=== PATIENT | male | born 1945 ===

== ENCOUNTER 2017-02-18 12:30 | Emergency (ER) | payer MEDICARE ==
[2017-02-18 12:30] VITALS: BMI 27.4
[2017-02-18] MEDS ORDERED: Iohexol 240 (50 ml) PO STA (13:17)
[2017-02-18] MEDS ORDERED: Sodium Chloride 0.9% 500 ML IV STA (13:17)
[2017-02-18] MEDS ORDERED: Iohexol 240 (50 ml) ONE ×2 (13:40)
[2017-02-18] MEDS ORDERED: Sodium Chloride 0.9% 0 ML ONE (13:40)
[2017-02-18] MEDS ORDERED: Sodium Chloride 0.9% 500 ML IV ONE (13:51)
[2017-02-18 13:52] LABS: BASO % 0.4 % (0.0-2.0); EOS # 0.1 K/uL (0.0-0.7); EOS % 1.8 % (0.0-4.0); HEMATOCRIT 38.4 % (35.0-51.0); LYMPH # 2.7 K/uL (1.0-4.3); LYMPH % 33.5 % (20.0-40.0); MEAN CELL VOLUME 90.1 fL (80.0-94.0); MEAN CORPUSCULAR HEMOGLOBIN 30.3 pg (27.0-31.0); MEAN CORPUSCULAR HGB CONC 33.6 g/dL (33.0-37.0); MEAN PLATELET VOLUME 8.4 fL (7.2-11.7); MONO # 0.6 K/uL (0.0-0.8); MONO % 7.2 % (0.0-10.0); RED CELL DISTRIBUTION WIDTH 14.2 % (11.5-14.5); WHITE BLOOD COUNT 8.1 K/uL (4.8-10.8)
--- NOTE | 2017-02-18 13:53 | C.PDOC ---
History Of Present Illness 71 y/o male with h/o diverticulosis presents to the ED with complains of LLQ abdominal pain x3 days with associated nausea and constipation. Patient was seen by his GI who sent him to ED to r/o diverticulitis. Pt denies fever, vomiting, chills, chest pain or any other complaints. Time Seen by Provider: 02/18/17 12:43 Chief Complaint (Nursing): Abdominal Pain History Per: Patient History/Exam Limitations: no limitations Onset/Duration Of Symptoms: Days Current Symptoms Are (Timing): Still Present Severity: Moderate Location Of Pain/Discomfort: LLQ Radiation Of Pain To:: None Quality Of Discomfort: "Pain" Associated Symptoms: Nausea, Constipation. denies: Fever, Vomiting, Diarrhea, Chest Pain Exacerbating Factors: None Alleviating Factors: None Recent travel outside of the [place]: No Past Medical History Reviewed: Historical Data, Nursing Documentation, Vital Signs Vital Signs: Last Vital Signs Temp 97.7 F 02/18/17 18:25 Pulse 60 02/18/17 18:25 Resp 16 02/18/17 18:25 BP 129/71 02/18/17 18:25 Pulse Ox 99 02/18/17 18:34 - Medical History PMH: Benign Prostatic Hyperplasia, Colonic Polyps (REMOVED), Diverticulitis ( diverticulosis), Gastritis, Kidney Stones, Chronic Kidney Disease Surgical History: Endoscopy - [facility] Procedures ENDOSC POLYPECTOMY OF LG INTEST (01/07/14) ESOPHAGOGASTRODUODENOSCOPY [EGD] W/CLOSED BIOPSY (01/07/14) RESECTION OF APPENDIX, PERCUTANEOUS ENDOSCOPIC APPROACH (05/29/16) RETROGRADE PYELOGRAM (12/21/14) Family History: States: Unknown Family Hx - Social History Hx Tobacco Use: Yes ("once in a while") Hx Alcohol Use: No Hx Substance Use: No - Immunization History Hx Tetanus Toxoid Vaccination: No Hx Influenza Vaccination: No Hx Pneumococcal Vaccination: No Review Of Systems Except As Marked, All Systems Reviewed And Found Negative. Constitutional: Negative for: Fever Cardiovascular: Negative for: Chest Pain Gastrointestinal: Positive for: Nausea, Abdominal Pain, Constipation. Negative for: Vomiting, Diarrhea Physical Exam - Physical Exam Appears: Non-toxic, No Acute Distress Skin: Warm, Dry, No Rash Head: Atraumatic, Normacephalic Neck: Normal ROM, Supple Chest: Symmetrical Cardiovascular: Rhythm Regular, No Murmur Respiratory: Normal Breath Sounds, No Rales, No Rhonchi, No Wheezing Gastrointestinal/Abdominal: Soft, Tenderness (LLQ), No Guarding, No Rebound Extremity: Bilateral: Atraumatic Neurological/Psych: Oriented x3, Normal Speech ED Course And Treatment - Laboratory Results Result Diagrams: 02/18/17 13:47 02/18/17 13:47 O2 Sat by Pulse Oximetry: 99 (room air) Pulse Ox Interpretation: Normal - CT Scan/US CT abd/pelvis Other Rad Studies (CT/US): Read By Radiologist, Radiology Report Reviewed CT/US Interpretation: Accession No. : [id number]. Patient Name / ID : JOHN MAYS / [id number]. Exam Date : 02/18/2017 17:28:05 ( Approved ). Study Comment : Sex / Age : M / 71Y. Creator : Page Kang MD. Dictator : Page Kang MD. Hosiery Mender : Mountain Guide : Page Kang MD. Approver2 : Report Date : 02/18/2017 18:01:12. My Comment : . PROCEDURE: CT Abdomen and Pelvis with oral and IV contrast. HISTORY: LLQ abd pain. COMPARISON: CT of the abdomen and pelvis without and with IV contrast performed 12/14/16. TECHNIQUE: Contiguous axial images of the abdomen and pelvis. Oral and IV contrast was administered. Coronal and Sagittal reformats generated and reviewed. Contrast dose: 100 mL Omnipaque 350. Radiation dose: Total exam DLP = 707.63 mGy-cm. This CT exam was performed using one or more of the following dose reduction techniques: Automated exposure control, adjustment of the mA and/or kV according to patient size, and/ or use of iterative reconstruction technique. FINDINGS: LOWER THORAX: No focal consolidation, pleural effusion, or pneumothorax identified. LIVER: Hypoattenuation of the liver compatible with hepatic steatosis. Scattered small low attenuation hepatic lesions, likely cysts. GALLBLADDER AND BILE DUCTS: Unremarkable. PANCREAS: Unremarkable. SPLEEN: 6 mm probable splenule. Otherwise unremarkable. ADRENALS: Unremarkable. KIDNEYS AND URETERS: The kidneys enhance symmetrically. No hydronephrosis or obstructing renal calculus. Punctate nonobstructing right renal calculi. BLADDER: Thick-walled under distended urinary bladder. REPRODUCTIVE: Heterogeneous enlarged prostate gland measures approximately 4.7 x 5.6 cm. APPENDIX: Status post appendectomy. BOWEL: The stomach is nondistended. The bowel loops appear within normal limits of caliber without evidence of intestinal obstruction. Extensive diverticulosis predominantly involving the left and rectosigmoid colon. Circumferential thickening of the rectosigmoid colon can be seen in setting of chronic diverticulosis. Clinical correlation is recommended to exclude colitis (I.e. infectious, inflammatory, ischemic). PERITONEUM: No significant free fluid. No definite free air. LYMPH NODES: No bulky lymphadenopathy identified. VASCULATURE: No aortic aneurysm. BONES: Osseous demineralization. Degenerative changes. OTHER FINDINGS: None. IMPRESSION: Extensive diverticulosis predominantly involving the left and rectosigmoid colon. Circumferential thickening of the rectosigmoid colon can be seen in setting of chronic diverticulosis. Clinical correlation is recommended to exclude colitis (I.e. infectious, inflammatory, ischemic). Enlarged heterogeneous prostate gland. Recommend correlation with PSA. Hypodense hepatic lesions, likely cysts. Urinary bladder wall thickening likely exaggerated by under distension. Recommend correlation with urinalysis. Multiple nonobstructing right renal calculi. Remainder of findings as above. Progress Note: Plan: CT abd, labs, zofran, UA, IV fluids. CT was negative for Diverticulosis. Patient was d/c home with PMD and GI follow up. Disposition - Disposition Referrals: Alayna Pugh [Staff Provider] - Cindi Hendrickson MD [Staff Provider] - Disposition: HOME/ ROUTINE Disposition Time: 18:30 Condition: STABLE Additional Instructions: Follow up with your PMD and Asphalt Dauber within 1-2 days. return to Ed if feel worse. Prescriptions: Docusate [Colace] 100 mg PO BID #20 cap Instructions: Diverticulitis (ED), Constipation (ED) Print Language: BERMUDIAN - Clinical Impression Clinical Impression: Constipation, Diverticulosis - PA / NETTING INSPECTOR / Resident Statement /DO has reviewed & agrees with the documentation as recorded. - Scribe Statement The provider has reviewed the documentation as recorded by the Scribtalya Xie All medical record entries made by the Gal were at my direction and personally dictated by me. I have reviewed the chart and agree that the record accurately reflects my personal performance of the history, physical exam, medical decision making, and the department course for this patient. I have also personally directed, reviewed, and agree with the discharge instructions and disposition.
[2017-02-18 14:01] LABS: RBC URINE 8 /hpf (0-3); URINE BILIRUBIN NEGATIVE (NEGATIVE); URINE BLOOD 1+ (NEGATIVE); URINE COLOR Yellow (YELLOW); URINE GLUCOSE (UA) NORMAL (Normal); URINE KETONE NEGATIVE (NEGATIVE); URINE LEUKOCYTE ESTERASE NEG Leu/uL (Negative); URINE PROTEIN NEGATIVE (NEGATIVE); URINE UROBILINOGEN NORMAL mg/dL (0.2-1.0); WBC URINE 2 /hpf (0-5)
[2017-02-18 14:08] LABS: CHLORIDE 106 mmol/L (98-107); SODIUM 142 mmol/L (132-148)
[2017-02-18 14:09] LABS: POTASSIUM 4.2 mmol/L (3.6-5.2)
[2017-02-18 14:11] LABS: ALB/GLOB RATIO 1.5 (1.0-2.1); BILIRUBIN,TOTAL 0.4 mg/dL (0.2-1.3); CARBON DIOXIDE 26 mmol/L (22-30); GFR AFRICAN-AMERICAN > 60; TOTAL PROTEIN 6.5 g/dL (6.3-8.3)
[2017-02-18 14:12] LABS: ALKALINE PHOSPHATASE 82 U/L (38-126); ALT/SGPT 22 U/L (21-72); AST/SGOT 28 U/L (17-59); BLOOD UREA NITROGEN 21 mg/dL (9-20); CALCIUM 8.7 mg/dl (8.6-10.4); GLUCOSE,RANDOM 97 mg/dL (75-110)
[2017-02-18] MEDS ORDERED: Iohexol 300 100 ML IJ ONE (17:12)
--- NOTE | 2017-02-18 18:03 | CT ---
PROCEDURE: CT Abdomen and Pelvis with oral and IV contrast. HISTORY: LLQ abd pain COMPARISON: CT of the abdomen and pelvis without and with IV contrast performed 12/14/16 TECHNIQUE: Contiguous axial images of the abdomen and pelvis. Oral and IV contrast was administered. Coronal and Sagittal reformats generated and reviewed. Contrast dose: 100 mL Omnipaque 350 Radiation dose: Total exam DLP = 707.63 mGy-cm. This CT exam was performed using one or more of the following dose reduction techniques: Automated exposure control, adjustment of the mA and/or kV according to patient size, and/or use of iterative reconstruction technique. FINDINGS: LOWER THORAX: No focal consolidation, pleural effusion, or pneumothorax identified. LIVER: Hypoattenuation of the liver compatible with hepatic steatosis. Scattered small low attenuation hepatic lesions, likely cysts. GALLBLADDER AND BILE DUCTS: Unremarkable. PANCREAS: Unremarkable. SPLEEN: 6 mm probable splenule. Otherwise unremarkable. ADRENALS: Unremarkable. KIDNEYS AND URETERS: The kidneys enhance symmetrically. No hydronephrosis or obstructing renal calculus. Punctate nonobstructing right renal calculi. BLADDER: Thick-walled under distended urinary bladder. REPRODUCTIVE: Heterogeneous enlarged prostate gland measures approximately 4.7 x 5.6 cm. APPENDIX: Status post appendectomy. BOWEL: The stomach is nondistended. The bowel loops appear within normal limits of caliber without evidence of intestinal obstruction. Extensive diverticulosis predominantly involving the left and rectosigmoid colon. Circumferential thickening of the rectosigmoid colon can be seen in setting of chronic diverticulosis. Clinical correlation is recommended to exclude colitis (I.e. infectious, inflammatory, ischemic). PERITONEUM: No significant free fluid. No definite free air. LYMPH NODES: No bulky lymphadenopathy identified. VASCULATURE: No aortic aneurysm. BONES: Osseous demineralization. Degenerative changes. OTHER FINDINGS: None. IMPRESSION: Extensive diverticulosis predominantly involving the left and rectosigmoid colon. Circumferential thickening of the rectosigmoid colon can be seen in setting of chronic diverticulosis. Clinical correlation is recommended to exclude colitis (I.e. infectious, inflammatory, ischemic). Enlarged heterogeneous prostate gland. Recommend correlation with PSA. Hypodense hepatic lesions, likely cysts. Urinary bladder wall thickening likely exaggerated by under distension. Recommend correlation with urinalysis. Multiple nonobstructing right renal calculi. Remainder of findings as above.
[2017-02-18 18:26] VITALS: BP 129/71; PULSE 60; RESP 16; TEMP 97.7
[2017-02-18 18:33] VITALS: O2SAT 99
== END 2017-02-18 18:46 | disposition home or self-care (01) ==
LOC: C.ER 12:30
DX: K57.30 Diverticulosis of large intestine without perforation or abscess without bleeding (principal); K59.00 Constipation, unspecified
CPT/HCPCS: 74177; 80053; 81001; 83605; 83690; 85025; 85610; 85730; 96361; 96374; 99285; J2405; J7040; Q9966; Q9967

== ENCOUNTER 2017-03-29 05:18 | Emergency (ER) | payer MEDICARE ==
[2017-03-29 05:19] VITALS: BMI 27.4
--- NOTE | 2017-03-29 05:32 | C.PDOC ---
History Of Present Illness Patient is a 71 year old male who presents to the ER with a complaint of hematuria and abdominal pain, associated with back pain, that began this morning. Patient has a Hx of kidney stones 2 years ago. Denies fever, chills and vomiting. Time Seen by Provider: 03/29/17 05:32 Chief Complaint (Nursing): Male Genitourinary History Per: Patient History/Exam Limitations: no limitations Onset/Duration Of Symptoms: Hrs Current Symptoms Are (Timing): Still Present Quality Of Discomfort: Unable To Describe Associated Symptoms: Back Pain, Urinary Symptoms (Hematuria), Other (Abdominal pain). denies: Fever, Chills, Vomiting Alleviating Factors: None Recent travel outside of the [place]: No Past Medical History Reviewed: Historical Data, Nursing Documentation, Vital Signs Vital Signs: Last Vital Signs Temp 97.8 F 03/29/17 06:45 Pulse 68 03/29/17 06:45 Resp 18 03/29/17 06:45 BP 143/79 03/29/17 06:45 Pulse Ox 98 03/29/17 06:45 - Medical History PMH: Benign Prostatic Hyperplasia, Colonic Polyps (REMOVED), Diverticulitis ( diverticulosis), Gastritis, Kidney Stones, Chronic Kidney Disease Surgical History: Endoscopy - [facility] Procedures ENDOSC POLYPECTOMY OF LG INTEST (01/07/14) ESOPHAGOGASTRODUODENOSCOPY [EGD] W/CLOSED BIOPSY (01/07/14) RESECTION OF APPENDIX, PERCUTANEOUS ENDOSCOPIC APPROACH (05/29/16) RETROGRADE PYELOGRAM (12/21/14) Family History: States: Unknown Family Hx - Social History Hx Tobacco Use: Yes ("once in a while") Hx Alcohol Use: No Hx Substance Use: Yes - Immunization History Hx Tetanus Toxoid Vaccination: No Hx Influenza Vaccination: No Hx Pneumococcal Vaccination: No Review Of Systems Constitutional: Negative for: Fever, Chills Gastrointestinal: Positive for: Abdominal Pain. Negative for: Vomiting Genitourinary: Positive for: Hematuria Musculoskeletal: Positive for: Back Pain Physical Exam - Physical Exam Appears: Non-toxic, No Acute Distress Skin: Normal Color, Warm, Dry Head: Atraumatic, Normacephalic Eye(s): bilateral: Normal Inspection, EOMI Nose: Normal Oral Mucosa: Moist Chest: Symmetrical, No Tenderness Cardiovascular: Rhythm Regular, No Murmur Respiratory: Normal Breath Sounds, No Accessory Muscle Use, No Rales, No Rhonchi , No Wheezing, Other (speaking in complete sentences) Gastrointestinal/Abdominal: Soft, Tenderness (Suprapubic) Back: No CVA Tenderness, No Vertebral Tenderness, No Paraspinal Tenderness Neurological/Psych: Oriented x3, Normal Speech, Other (No focal deficits) ED Course And Treatment - Laboratory Results Result Diagrams: 03/29/17 06:01 03/29/17 06:01 O2 Sat by Pulse Oximetry: 99 (Room air) Pulse Ox Interpretation: Normal Progress Note: CT abd/pel w/o contrast, blood work and urine culture ordered. Ultram administered. Bladder scan : 27 cc. Case endorsed to MARKEL winn CT results and re-evaluatuion. Disposition - Disposition Disposition Time: 07:01 Condition: STABLE - Clinical Impression Clinical Impression: Hematuria - Scribe Statement The provider has reviewed the documentation as recorded by the Scribe Declan Thacker All medical record entries made by the Scribe were at my direction and personally dictated by me. I have reviewed the chart and agree that the record accurately reflects my personal performance of the history, physical exam, medical decision making, and the department course for this patient. I have also personally directed, reviewed, and agree with the discharge instructions and disposition.
[2017-03-29 05:56] LABS: RBC URINE 2971 /hpf (0-3); URINE BILIRUBIN NEGATIVE (NEGATIVE); URINE BLOOD 3+ (NEGATIVE); URINE COLOR LIGHT RED (YELLOW); URINE GLUCOSE (UA) NORMAL (Normal); URINE KETONE NEGATIVE (NEGATIVE); URINE LEUKOCYTE ESTERASE NEG Leu/uL (Negative); URINE PROTEIN 2+ mg/dL (NEGATIVE); URINE UROBILINOGEN NORMAL mg/dL (0.2-1.0); WBC URINE 10 /hpf (0-5)
[2017-03-29 06:04] LABS: BASO % 0.5 % (0.0-2.0); EOS # 0.4 K/uL (0.0-0.7); EOS % 4.8 % (0.0-4.0); HEMATOCRIT 41.4 % (35.0-51.0); LYMPH # 3.3 K/uL (1.0-4.3); LYMPH % 40.7 % (20.0-40.0); MEAN CELL VOLUME 91.3 fL (80.0-94.0); MEAN CORPUSCULAR HEMOGLOBIN 30.2 pg (27.0-31.0); MEAN CORPUSCULAR HGB CONC 33.1 g/dL (33.0-37.0); MEAN PLATELET VOLUME 8.2 fL (7.2-11.7); MONO # 0.6 K/uL (0.0-0.8); MONO % 8.1 % (0.0-10.0); NRBC % 0.1 % (0.0-2.0); RED CELL DISTRIBUTION WIDTH 13.6 % (11.5-14.5)
[2017-03-29 06:13] LABS: CHLORIDE 106 mmol/L (98-107); SODIUM 138 mmol/L (132-148)
[2017-03-29 06:14] LABS: POTASSIUM 4.3 mmol/L (3.6-5.2)
[2017-03-29 06:16] LABS: ALB/GLOB RATIO 1.5 (1.0-2.1); ALKALINE PHOSPHATASE 106 U/L (38-126); ALT/SGPT 10 U/L (21-72); AST/SGOT 24 U/L (17-59); BILIRUBIN,TOTAL 0.6 mg/dL (0.2-1.3); BLOOD UREA NITROGEN 29 mg/dL (9-20); CARBON DIOXIDE 23 mmol/L (22-30); GFR AFRICAN-AMERICAN > 60; GLUCOSE,RANDOM 109 mg/dL (75-110); TOTAL PROTEIN 6.8 g/dL (6.3-8.3)
[2017-03-29 06:45] VITALS: RESP 18
--- NOTE | 2017-03-29 06:53 | CT ---
EXAM: CT Abdomen and Pelvis Without Intravenous Contrast CLINICAL HISTORY: 71 years old, male; Pain; Abdominal pain; Other: Pain, hematuria; Patient HX: 02-18-17 TECHNIQUE: Axial computed tomography images of the abdomen and pelvis without intravenous contrast. This CT exam was performed using one or more of the following dose reduction techniques: automated exposure control, adjustment of the mA and/or kV according to patient size, and/or use of iterative reconstruction technique. Coronal and sagittal reformatted images were created and reviewed. COMPARISON: CT - ABD PELVIS PO IV CONTRAST 02/18/2017 5:28:05 PM FINDINGS: Lower thorax: No acute findings. ABDOMEN: Liver: Few too small to characterize lesions. Gallbladder and bile ducts: No calcified stones. No ductal dilation. Pancreas: Unremarkable. No ductal dilation. Spleen: No splenomegaly. Adrenals: No mass. Kidneys and ureters: Several small calculi within RIGHT kidney. No hydronephrosis. Stomach and bowel: Scattered diverticula within colon. No associated inflammatory stranding. No definite mural thickening. No obstruction. Appendix: Appendectomy. PELVIS: Bladder: Unremarkable. No stones. Reproductive: Enlarged prostate gland. ABDOMEN and PELVIS: Intraperitoneal space: No significant fluid collection. No free air. Bones/joints: Mild degenerative changes of spine. No acute fracture. Soft tissues: Small RIGHT inguinal hernia containing fat. Vasculature: Minimal atherosclerotic disease. No abdominal aortic aneurysm. Lymph nodes: No pathologically enlarged lymph nodes. IMPRESSION: 1. Nonobstructing renal calculi. 2. Diverticulosis without CT evidence of diverticulitis. 3. Prostate enlargement. Followup as clinically warranted. 4. Incidental/non-acute findings are described above.
[2017-03-29] MEDS ORDERED: Sodium Chloride 0.9% 1,000 ML IV ONE (06:55)
[2017-03-29 09:16] VITALS: BP 148/74; PULSE 60; TEMP 97.6; O2SAT 100
== END 2017-03-29 09:16 | disposition home or self-care (01) ==
LOC: C.ER 05:18
DX: R31.9 Hematuria, unspecified (principal)
CPT/HCPCS: 74176; 80053; 81001; 85025; 87086; 96360; 99285; J7040

== ENCOUNTER 2017-09-24 08:43 | Day surgery (SDC) | payer MEDICARE ==
[2017-09-24] MEDS ORDERED: Iohexol 240 (50 ml) ONE (10:33)
[2017-09-24] MEDS ORDERED: Ciprofloxacin 400mg/200ml D5W 400 MG/200 ML BAG IVPB ONE (10:33)
[2017-09-24] MEDS ORDERED: Lidocaine 2% Jelly (Uro-Jet) ONE (10:33)
[2017-09-24] MEDS ORDERED: Midazolam 2 MG/2 ML VIAL ONE (10:39)
[2017-09-24] MEDS ORDERED: Propofol 10 mg/ml Inj (20 ML) ONE ×2 (10:39→11:13)
[2017-09-24] MEDS ORDERED: Lactated Ringer's 1,000 ML IV ONE (10:40)
[2017-09-24] MEDS ORDERED: HYDROmorphone 0.5 mg/0.5 ml ISec IVP PRN (11:32)
[2017-09-24 11:40] VITALS: O2SAT 100
[2017-09-24 12:57] VITALS: BP 110/72; PULSE 61; RESP 18; TEMP 97
--- NOTE | 2017-09-24 13:31 | RAD ---
PROCEDURE: HISTORY: HEMATURIA COMPARISON: CT abdomen and pelvis 03/29/2017 and April 02 101 abdomen flat plate TECHNIQUE: Four images. Correlation with physician's notes during the procedure recommended FINDINGS: Design Printing Machine Setter image -at least 4 right renal calculi mostly mid to lower pole suggested largest 3 mm approximately. Similar-appearing with prior studies Image number 2: Catheter in bladder distal left ureter cannulized. Probable air in bladder. Only most distal left ureteral segment partially opacified - Image number 3 more proximal left ureteral opacification without filling defect oral contour regularity. Left intra renal pelvocaliceal system opacify without gross filling defects. Small defects near calices not excluded. . Backflow of contrast noted -at least -pyelo lymphatic type. Additional types probable. No dilatation to suggest hydronephrosis Image number 4: Probable top-normal caliber of right opacified right ureter. Similar back flow of contrast noted in also with at least pyelo lymphatic type. No dilatation to suggest hydronephrosis. No gross filling defects. Small filling defects near the minor calices not excluded - minor calices in close proximity with the after mentioned right renal calculi. IMPRESSION: Right renal nonobstructing calculi. No urethral strictures or gross filling defects appreciated. No marked ureteral contour irregularities. No dilatation to suggest hydronephrosis or hydroureter Bilateral contrast back flow in at minimal -bilateralpyelo lymphatic type.
--- NOTE | 2017-09-25 06:50 | OP ---
PROCEDURE DATE: 09/24/2017 PREOPERATIVE DIAGNOSIS: Microscopic hematuria 2+. POSTOPERATIVE DIAGNOSIS: Prostatocystitis. OPERATION: Cystoscopy, bilateral retrograde pyelogram. SURGEON: Chai Potter MD. GROSS FINDINGS: Good bladder capacity. No tumors or stone were observed during emptying and filling of the bladder. Mild trabeculated bladder. Increased bladder vascularity with inflammation. Ureteral orifices normally placed and in configuration. Large lateral lobes of the prostate gland meeting at the midline with inflammation of the prostate. Large middle lobe. Inflammation of the bulbous urethra. Pendulous urethra is normal. TECHNIQUE: This patient was placed in lithotomy position. The external genitalia was prepped and draped in the usual sterile fashion. A #22 panendoscope was passed into the bladder under direct vision, finding as above. Using a 0.35 wire which was passed into the left ureter over the wire. Over the wire, an open ended ureteral catheter was passed. The wire was removed. 10 mL of dye was injected into the left renal unit. X-rays were taken, which showed no evidence of obstruction, space-occupying lesion or intraluminal defect. The same procedure was accomplished on the right side. No evidence of obstruction, space-occupying lesion or intraluminal defect. A tiny calcification is observed in the lower pole of the right kidney. The procedure was terminated. The patient returned to recovery room in satisfactory condition. Chai Potter MD
== END 2017-09-24 13:12 | disposition home or self-care (01) ==
LOC: C.SDS 08:43
PROVIDERS: ATTEND Urology
DX: N41.3 Prostatocystitis (principal); R31.29 Other microscopic hematuria
CPT/HCPCS: 52005; 74420; C1758; C1769; J0744; J7120; Q9966

== ENCOUNTER 2017-11-30 12:02 | Emergency (ER) | payer MEDICARE ==
[2017-11-30 12:02] VITALS: BMI 27.4
[2017-11-30 12:11] VITALS: RESP 20
[2017-11-30 13:45] LABS: BASO # 0.1 K/uL (0.0-0.2); BASO % 0.7 % (0.0-2.0); EOS # 0.1 K/uL (0.0-0.7); EOS % 0.7 % (0.0-4.0); HEMOGLOBIN 13.4 g/dL (12.0-18.0); LYMPH # 2.5 K/uL (1.0-4.3); LYMPH % 30.6 % (20.0-40.0); MEAN CELL VOLUME 95.3 fL (80.0-94.0); MEAN CORPUSCULAR HEMOGLOBIN 33.1 pg (27.0-31.0); MEAN CORPUSCULAR HGB CONC 34.7 g/dL (33.0-37.0); MEAN PLATELET VOLUME 7.8 fL (7.2-11.7); MONO # 0.6 K/uL (0.0-0.8); MONO % 6.7 % (0.0-10.0); NEUT # 5.1 K/uL (1.8-7.0); NEUT % 61.3 % (50.0-75.0); RBC 4.04 Mil/uL (4.40-5.90); RED CELL DISTRIBUTION WIDTH 13.6 % (11.5-14.5); WHITE BLOOD COUNT 8.3 K/uL (4.8-10.8)
[2017-11-30 13:55] LABS: URINE BILIRUBIN NEGATIVE (NEGATIVE); URINE BLOOD 3+ (NEGATIVE); URINE GLUCOSE (UA) 1+ mg/dL (Normal); URINE LEUKOCYTE ESTERASE NEG Leu/uL (Negative); URINE NITRATE NEGATIVE (NEGATIVE); URINE PROTEIN 2+ mg/dL (NEGATIVE); URINE UROBILINOGEN NORMAL mg/dL (0.2-1.0)
[2017-11-30 13:57] LABS: URINE CLARITY Turbid (Clear)
[2017-11-30 13:58] LABS: ALB/GLOB RATIO 1.5 (1.0-2.1); CALCIUM 9.1 mg/dl (8.6-10.4); GFR AFRICAN-AMERICAN > 60; GFR NON-AFRICAN AMERICAN 60; LIPASE 99 U/L (23-300); URINE COLOR Red (YELLOW)
[2017-11-30 14:00] LABS: ALT/SGPT 27 U/L (21-72); AST/SGOT 29 U/L (17-59); BLOOD UREA NITROGEN 19 mg/dL (9-20)
--- NOTE | 2017-11-30 14:05 | C.PDOC ---
History Of Present Illness 72 y/o male presents to ED with complaints of gross hematuria that began last night. Pt states he experienced suprapubic tenderness last night but not today. Denies nausea, vomiting, blood in stool, fever or cough. Pt states he had similar symptoms last month and was diagnosed with kidney stones. Chief Complaint (Nursing): Male Genitourinary History Per: Patient History/Exam Limitations: no limitations Onset/Duration Of Symptoms: Hrs Current Symptoms Are (Timing): Still Present Quality Of Discomfort: Unable To Describe Associated Symptoms: Other (suprapubic tenderness). denies: Fever, Chills, Nausea, Vomiting, Diarrhea Alleviating Factors: None Recent travel outside of the [place]: No Past Medical History Reviewed: Historical Data, Nursing Documentation, Vital Signs Vital Signs: Last Vital Signs Temp 98.7 F 11/30/17 15:05 Pulse 65 11/30/17 15:05 Resp 20 11/30/17 15:05 BP 158/96 H 11/30/17 15:05 Pulse Ox 98 11/30/17 15:05 - Medical History PMH: Benign Prostatic Hyperplasia, Colonic Polyps (REMOVED), Diverticulitis ( diverticulosis), Gastritis, Kidney Stones, Chronic Kidney Disease Surgical History: Appendectomy, Endoscopy - [facility] Procedures ENDOSC POLYPECTOMY OF LG INTEST (01/07/14) ESOPHAGOGASTRODUODENOSCOPY [EGD] W/CLOSED BIOPSY (01/07/14) RESECTION OF APPENDIX, PERCUTANEOUS ENDOSCOPIC APPROACH (05/29/16) RETROGRADE PYELOGRAM (12/21/14) Family History: States: Unknown Family Hx - Social History Hx Tobacco Use: Yes ("once in a while") Hx Alcohol Use: No Hx Substance Use: Yes - Immunization History Hx Tetanus Toxoid Vaccination: No Hx Influenza Vaccination: No Hx Pneumococcal Vaccination: No Review Of Systems Constitutional: Negative for: Fever Respiratory: Negative for: Cough Gastrointestinal: Negative for: Nausea, Vomiting, Diarrhea Genitourinary: Positive for: Hematuria (gross). Negative for: Other (blood in stool) Neurological: Negative for: Weakness, Numbness Physical Exam - Physical Exam Appears: Well, Non-toxic, No Acute Distress Skin: Normal Color, Warm, Dry Head: Atraumatic, Normacephalic Eye(s): bilateral: Normal Inspection Oral Mucosa: Moist Neck: Supple Chest: Symmetrical, No Tenderness Cardiovascular: Rhythm Regular Respiratory: Normal Breath Sounds, No Decreased Breath Sounds, No Rales, No Rhonchi, No Wheezing Gastrointestinal/Abdominal: Soft, Tenderness (suprapubic) Neurological/Psych: Oriented x3, Normal Speech, Normal Cognition ED Course And Treatment - Laboratory Results Result Diagrams: 11/30/17 13:42 11/30/17 13:42 O2 Sat by Pulse Oximetry: 96 (RA) Pulse Ox Interpretation: Normal - CT Scan/US CT Abdomen & Pelvis Other Rad Studies (CT/US): Read By Radiologist, Radiology Report Reviewed CT/US Interpretation: PROCEDURE: CT Abdomen and Pelvis without Oral or IV contrast. HISTORY: gross hematuria. COMPARISON: CT abdomen pelvis without contrast performed 03/29/17. TECHNIQUE: Contiguous axial images of the abdomen and pelvis. No oral or IV contrast administered. Coronal and Sagittal reformats generated and reviewed. Radiation dose: Total exam DLP = 488.26 mGy-cm. This CT exam was performed using one or more of the following dose reduction techniques: Automated exposure control, adjustment of the mA and/or kV according to patient size, and/or use of iterative reconstruction technique. FINDINGS: There is limited evaluation of the solid organs without the administration of IV contrast. LOWER THORAX: Mild bibasilar atelectasis. There is no visible pleural effusion or pneumothorax. LIVER: Too small to characterize hepatic hypodensities ; statistically likely cysts or hemangiomas. GALLBLADDER AND BILE DUCTS: Unremarkable unenhanced appearance. PANCREAS: Unremarkable unenhanced appearance. SPLEEN: Unremarkable unenhanced appearance. ADRENALS: Unremarkable unenhanced appearance. KIDNEYS AND URETERS : No hydronephrosis or obstructing renal calculus. Nonobstructing right renal calculi. BLADDER: Mildly thick-walled urinary bladder may be exaggerated by under distension. REPRODUCTIVE: Enlarged heterogeneous prostate gland measures approximately 5.0 x 5.6 cm. APPENDIX: Surgical changes consistent with appendectomy ; correlate clinically. No secondary signs of acute appendicitis. BOWEL: The stomach is nondistended. Lack of oral contrast limits evaluation for bowel pathology. The bowel loops appear within normal limits of caliber without evidence of intestinal obstruction. Diverticulosis without CT evidence of acute diverticulitis. PERITONEUM: No significant free fluid. No definite free air. LYMPH NODES: No bulky lymphadenopathy identified. VASCULATURE: No aortic aneurysm. BONES: No acute osseous abnormality is detected. OTHER FINDINGS: None. IMPRESSION: Markedly enlarged heterogeneous prostate gland. Recommend correlation with PSA. Mildly thick-walled urinary bladder may be exaggerated by under distension. Recommend correlation with urinalysis. Nonobstructing right renal calculi. Too small to characterize hepatic hypodensities; statistically likely cysts or hemangiomas. Additional findings as above. Medical Decision Making Medical Decision Making: Ordered CT abdomen and pelvis, blood work, urine culture and urinalysis. Spoke to urologist ; Reviewed patient's case. Pt will be discharged and will follow up with the urologist in two days. Disposition - Disposition Referrals: Chai Potter Sr., MD [Staff Provider] - Disposition: HOME/ ROUTINE Disposition Time: 14:40 Condition: GOOD Additional Instructions: Thank you for letting us take care of you today. The emergency medical care you received today was directed at your acute symptoms. If you were prescribed any medication, please fill it and take as directed. It may take several days for your symptoms to resolve. Return to the Emergency Department if your symptoms worsen, do not improve, or if you have any other problems. Please contact your doctor or call one of the physicians/clinics you have been referred to that are listed on the Patient Visit Information form that is included in your discharge packet. Bring any paperwork you were given at discharge with you along with any medications you are taking to your follow up visit. Our treatment cannot replace ongoing medical care by a primary care provider (PCP) outside of the emergency department. Thank you for allowing the [facility] team to be part of your care today. Follow up with Dr. Potter in 2 days. BRING ALL PAPERWORK TO HIS OFFICE. Instructions: Acute Hematuria (ED) Forms: [employer] (Georgian) - Clinical Impression Clinical Impression: Hematuria - Scribe Statement The provider has reviewed the documentation as recorded by the Scribe Rudolph Carvalho All medical record entries made by the Scribe were at my direction and personally dictated by me. I have reviewed the chart and agree that the record accurately reflects my personal performance of the history, physical exam, medical decision making, and the department course for this patient. I have also personally directed, reviewed, and agree with the discharge instructions and disposition.
--- NOTE | 2017-11-30 14:15 | CT ---
PROCEDURE: CT Abdomen and Pelvis without Oral or IV contrast. HISTORY: gross hematuria COMPARISON: CT abdomen pelvis without contrast performed 03/29/17 TECHNIQUE: Contiguous axial images of the abdomen and pelvis. No oral or IV contrast administered. Coronal and Sagittal reformats generated and reviewed. Radiation dose: Total exam DLP = 488.26 mGy-cm. This CT exam was performed using one or more of the following dose reduction techniques: Automated exposure control, adjustment of the mA and/or kV according to patient size, and/or use of iterative reconstruction technique. FINDINGS: There is limited evaluation of the solid organs without the administration of IV contrast. LOWER THORAX: Mild bibasilar atelectasis. There is no visible pleural effusion or pneumothorax. LIVER: Too small to characterize hepatic hypodensities ; statistically likely cysts or hemangiomas. GALLBLADDER AND BILE DUCTS: Unremarkable unenhanced appearance. PANCREAS: Unremarkable unenhanced appearance. SPLEEN: Unremarkable unenhanced appearance. ADRENALS: Unremarkable unenhanced appearance. KIDNEYS AND URETERS: No hydronephrosis or obstructing renal calculus. Nonobstructing right renal calculi. BLADDER: Mildly thick-walled urinary bladder may be exaggerated by under distension. REPRODUCTIVE: Enlarged heterogeneous prostate gland measures approximately 5.0 x 5.6 cm. APPENDIX: Surgical changes consistent with appendectomy ; correlate clinically. No secondary signs of acute appendicitis. BOWEL: The stomach is nondistended. Lack of oral contrast limits evaluation for bowel pathology. The bowel loops appear within normal limits of caliber without evidence of intestinal obstruction. Diverticulosis without CT evidence of acute diverticulitis. PERITONEUM: No significant free fluid. No definite free air. LYMPH NODES: No bulky lymphadenopathy identified. VASCULATURE: No aortic aneurysm. BONES: No acute osseous abnormality is detected. OTHER FINDINGS: None. IMPRESSION: Markedly enlarged heterogeneous prostate gland. Recommend correlation with PSA. Mildly thick-walled urinary bladder may be exaggerated by under distension. Recommend correlation with urinalysis. Nonobstructing right renal calculi. Too small to characterize hepatic hypodensities; statistically likely cysts or hemangiomas Additional findings as above.
[2017-11-30 15:06] VITALS: BP 158/96; PULSE 65; TEMP 98.7
[2017-12-01 00:19] VITALS: O2SAT 96
== END 2017-11-30 15:16 | disposition home or self-care (01) ==
LOC: C.ER 12:02
DX: R31.9 Hematuria, unspecified (principal)

== ENCOUNTER 2018-04-28 18:13 | Emergency (ER) | payer MEDICARE ==
[2018-04-28 18:37] VITALS: BMI 25.2
[2018-04-28] MEDS ORDERED: Lidocaine 2% MPF (5 ml) Inj ONE (19:34)
[2018-04-28] MEDS ORDERED: Tetanus/Diphtheria Toxoids 0.5 ml Syringe IM ONE (19:49)
--- NOTE | 2018-04-28 20:19 | C.PDOC ---
History Of Present Illness 72 y/o male presents to the ED complaining of pain and swelling to the left index finger for the past week. Reports a history of infected cyst on the same finger. 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 Denies any trauma. No fever or chills. Time Seen by Provider: 04/28/18 19:17 Chief Complaint (Nursing): Finger,Hand,&Wrist History Per: Patient History/Exam Limitations: no limitations Onset/Duration Of Symptoms: Days Current Symptoms Are (Timing): Still Present Severity: Moderate Past Medical History Reviewed: Historical Data, Nursing Documentation, Vital Signs Vital Signs: Last Vital Signs Temp 98.4 F 04/28/18 20:32 Pulse 62 04/28/18 20:32 Resp 18 04/28/18 20:32 BP 130/81 04/28/18 20:32 Pulse Ox 99 04/28/18 21:37 - Medical History PMH: Benign Prostatic Hyperplasia, Colonic Polyps (REMOVED), Diverticulitis ( diverticulosis), Gastritis, Kidney Stones, Chronic Kidney Disease Denies: Crohn's Disease, Gall Bladder Disease, HTN, Pancreatitis Surgical History: Appendectomy, Endoscopy - [facility] Procedures ENDOSC POLYPECTOMY OF LG INTEST (01/07/14) ESOPHAGOGASTRODUODENOSCOPY [EGD] W/CLOSED BIOPSY (01/07/14) RESECTION OF APPENDIX, PERCUTANEOUS ENDOSCOPIC APPROACH (05/29/16) RETROGRADE PYELOGRAM (12/21/14) Family History: States: Unknown Family Hx - Social History Hx Tobacco Use: Yes ("once in a while") Hx Alcohol Use: No Hx Substance Use: No - Immunization History Hx Tetanus Toxoid Vaccination: No Hx Influenza Vaccination: No Hx Pneumococcal Vaccination: No Review Of Systems Constitutional: Negative for: Fever, Chills Skin: Positive for: Other (swelling, pain to finger) Physical Exam - Physical Exam Appears: Non-toxic, No Acute Distress Skin: Normal Color, Warm, No Rash Head: Atraumatic, Normacephalic Eye(s): bilateral: Normal Inspection Oral Mucosa: Moist Neck: Normal ROM, Supple Chest: Symmetrical Respiratory: No Accessory Muscle Use Extremity: Normal ROM, Capillary Refill (less than 2 sec), Other (Tenderness and yellow discoloration to the lateral aspect of the left 2nd digit DIP, with no proximal streaking or erythema of the hand) Pulses: Left Radial: Normal, Right Radial: Normal Neurological/Psych: Oriented x3, Normal Speech, Normal Motor, Normal Sensation ED Course And Treatment O2 Sat by Pulse Oximetry: 99 (RA) Pulse Ox Interpretation: Normal Progress Note: Wound incised, with purulent drainage expressed (see procedure note). Patient tolerated procedure well and is stable for discharge home. Advised to follow up with PMD or hand specialist in 2 days. - Incision & Drainage Of Abscess Anesthesia: Lidocaine 2% Prep Used: Sterile Water Procedure: Incised W/Scalpel Blade#: (15), Drained Pus (curdy discharge was expressed from the wound), Irrigated Cavity W/Saline, Packed W/Gauze Procedure: Blank - Time Out Time Out: Side verified, Site verified, Patient ID confirmed - Consent obtained: Consent obtained: Verbal - Performed by: Performed by:: Mid-level provider - Anesthetic Technique Anesthetic Technique: Regional block (Digital block) - Topical: Local/Regional Anesthetic:: Lidocaine 2% - Regional Nerve Block Regional Nerve Block:: Digital - Post-Procedure Post-procedure:: Dressing applied - Patient Tolerated Procedure Patient Tolerated Procedure:: Well Disposition Counseled Patient/Family Regarding: Diagnosis, Need For Followup, Rx Given - Disposition Referrals: Dhiraj Guevara MD [Staff Provider] - Disposition: HOME/ ROUTINE Disposition Time: 20:15 Condition: STABLE Additional Instructions: Please follow up with PMD in 2 d / or call Hand surgeon for appointment Take medications as directed Return to ER if worse Prescriptions: Cephalexin [cephalexin] 500 mg PO Q6 #28 cap Instructions: Abscess Incision and Drainage (DC) Forms: [employer] (Danish) - POA Present On Arrival: None - Clinical Impression Clinical Impression: Abscess of finger, left - PA / TOOL ROOM ATTENDANT / Resident Statement MD/DO has reviewed & agrees with the documentation as recorded. - Scribe Statement The provider has reviewed the documentation as recorded by the Scribe (Essie Lin) All medical record entries made by the Scribe were at my direction and personally dictated by me. I have reviewed the chart and agree that the record accurately reflects my personal performance of the history, physical exam, medical decision making, and the department course for this patient. I have also personally directed, reviewed, and agree with the discharge instructions and disposition.
[2018-04-28 20:35] VITALS: BP 130/81; PULSE 62; RESP 18; TEMP 98.4
[2018-04-28 21:28] VITALS: O2SAT 99
== END 2018-04-28 20:33 | disposition home or self-care (01) ==
LOC: C.ER 18:13
DX: L02.512 Cutaneous abscess of left hand (principal)

== ENCOUNTER 2018-08-05 06:55 | Emergency (ER) | payer MEDICARE ==
[2018-08-05 06:55] VITALS: BMI 25.2
[2018-08-05 07:16] VITALS: O2SAT 100
[2018-08-05] MEDS ORDERED: Sodium Chloride 0.9% 1,000 ML IV ONE (07:38)
[2018-08-05] MEDS ORDERED: Sodium Chloride 0.9% 1,000 ML ONE (07:57)
[2018-08-05 08:05] LABS: BASO # 0.1 K/uL (0.0-0.2); BASO % 0.7 % (0.0-2.0); EOS # 0.2 K/uL (0.0-0.7); HEMOGLOBIN 13.9 g/dL (12.0-18.0); LYMPH # 2.7 K/uL (1.0-4.3); LYMPH % 32.8 % (20.0-40.0); MEAN CELL VOLUME 93.9 fL (80.0-94.0); MEAN CORPUSCULAR HEMOGLOBIN 32.5 pg (27.0-31.0); MEAN CORPUSCULAR HGB CONC 34.6 g/dL (33.0-37.0); MEAN PLATELET VOLUME 7.7 fL (7.2-11.7); MONO # 0.6 K/uL (0.0-0.8); MONO % 7.4 % (0.0-10.0); NEUT # 4.6 K/uL (1.8-7.0); NEUT % 56.1 % (50.0-75.0); RBC 4.28 Mil/uL (4.40-5.90); RED CELL DISTRIBUTION WIDTH 13.2 % (11.5-14.5); WHITE BLOOD COUNT 8.1 K/uL (4.8-10.8)
[2018-08-05 08:26] LABS: ALB/GLOB RATIO 1.7 (1.0-2.1); ALBUMIN 4.6 g/dL (3.5-5.0); ALT/SGPT 31 U/L (21-72); AST/SGOT 22 U/L (17-59); BLOOD UREA NITROGEN 26 mg/dL (9-20); CALCIUM 9.3 mg/dl (8.6-10.4); GFR NON-AFRICAN AMERICAN > 60
[2018-08-05 09:42] LABS: URINE BACTERIA RARE (<OCC); URINE BILIRUBIN NEGATIVE (NEGATIVE); URINE BLOOD 2+ (NEGATIVE); URINE CLARITY Clear (Clear); URINE COLOR Yellow (YELLOW); URINE GLUCOSE (UA) NORMAL (Normal); URINE LEUKOCYTE ESTERASE NEG Leu/uL (Negative); URINE PROTEIN NEGATIVE (NEGATIVE); URINE UROBILINOGEN NORMAL mg/dL (0.2-1.0)
--- NOTE | 2018-08-05 09:45 | C.PDOC ---
History Of Present Illness 73 yo male with PMH HTN c/o left hand pain since yesterday. Pt states that yesterday he was working, got up and felt dizzy. He tried to catch himself with his hands and his left hand landed on a jewelry tool causing a puncture wound. Since then he has pain with movement of his hand and applying pressure on it. Pt reports that his dizziness is secondary to taking Promethazine for his cough x 4 days. Admits to chest pain intermittently for 6 months for which he was evaluated for at [place] including having a negative cardiac cath. Denies dizziness now, sob, abdominal pain, n/v/d, or fever. Time Seen by Provider: 08/05/18 07:17 Chief Complaint (Nursing): Upper Extremity Problem/Injury History Per: Patient History/Exam Limitations: no limitations Onset/Duration Of Symptoms: Hrs Current Symptoms Are (Timing): Still Present Quality: "Pain" Additional History Per: Patient Past Medical History Reviewed: Historical Data, Nursing Documentation, Vital Signs Vital Signs: Last Vital Signs Temp 98.0 F 08/05/18 07:10 Pulse 69 08/05/18 07:10 Resp 20 08/05/18 07:10 BP 167/87 H 08/05/18 07:10 Pulse Ox 100 08/05/18 07:10 - Medical History PMH: Benign Prostatic Hyperplasia, Colonic Polyps (REMOVED), Diverticulitis (diverticulosis), Gastritis, HTN, Kidney Stones, Chronic Kidney Disease Denies: Crohn's Disease, Gall Bladder Disease, Pancreatitis Surgical History: Appendectomy, Endoscopy - [facility] Procedures ENDOSC POLYPECTOMY OF LG INTEST (01/07/14) ESOPHAGOGASTRODUODENOSCOPY [EGD] W/CLOSED BIOPSY (01/07/14) RESECTION OF APPENDIX, PERCUTANEOUS ENDOSCOPIC APPROACH (05/29/16) RETROGRADE PYELOGRAM (12/21/14) Family History: States: Unknown Family Hx - Social History Hx Tobacco Use: Yes ("once in a while") Hx Alcohol Use: No Hx Substance Use: Yes - Immunization History Hx Tetanus Toxoid Vaccination: No (unk) Hx Influenza Vaccination: No Hx Pneumococcal Vaccination: No (unk) Review Of Systems Respiratory: Negative for: Shortness of Breath Gastrointestinal: Negative for: Abdominal Pain Musculoskeletal: Positive for: Hand Pain (left ) Neurological: Negative for: Dizziness Physical Exam - Physical Exam Appears: Non-toxic, No Acute Distress Skin: Warm, Dry, Other (puncture wound to left palm. no active bleeding ) Head: Atraumatic, Normacephalic Eye(s): bilateral: Normal Inspection, EOMI Nose: Normal Oral Mucosa: Moist Neck: Normal ROM, Supple Chest: Symmetrical, No Deformity, No Tenderness Cardiovascular: Rhythm Regular Respiratory: No Rales, No Rhonchi, No Wheezing, Other (dry cough ) Extremity: Normal ROM, Tenderness, Capillary Refill (less than 2 seconds ), S welling ((+) tenderness and swelling to the left suarez aspect) Pulses: Left Radial: Normal, Right Radial: Normal Neurological/Psych: Oriented x3, Normal Speech, Normal Cognition, Normal Sensation ED Course And Treatment - Laboratory Results Result Diagrams: 08/05/18 08:02 08/05/18 08:02 O2 Sat by Pulse Oximetry: 100 (on RA) Pulse Ox Interpretation: Normal - Other Rad hand XR X-Ray: Viewed By Me, Read By Radiologist Interpretation: PROCEDURE: Left Hand Radiographs. HISTORY: trauma. COMPARISON: None. FINDINGS: BONES: Normal. No fracture. JOINTS: Normal. No osteoarthritic changes. SOFT TISSUES: There is to 2 mm rounded hyperdensity closely approximating the volar 3rd digits distal phalangeal cortex definite cortical interruption here seen. There is less dense tinier hyperdensities in the soft tissues over the thumb/tuft. These findings may be material around the nail bed as a similar finding is also noted over the 3rd nail bed. OTHER FINDINGS: None. IMPRESSION: No gross cortical fracture. No dislocation. Hyperdensities most of which are likely relating to nail bed material-etiology unknown as above. The largest hyperdensity/3rd digit as above its etiology and chronicity is unknown. Clinical correlation regarding any prior trauma is needed. No gross cortical fracture gross cortical interruption seen. CXR X-Ray: Viewed By Me, Read By Radiologist Interpretation: PROCEDURE: CHEST RADIOGRAPH, 2 VIEW. HISTORY: Shortness of breath. COMPARISON: 08/15/2016. FINDINGS: LUNGS: Hyperinflation suggestive for COPD and or emphysematous changes. Mild patchy increased markings at the left lung base. Bilateral hilar prominence. PLEURA: No pneumothorax or pleural fluid seen. CARDIOVASCULAR: Normal. Calcification at the aortic knob. OSSEOUS STRUCTURES: Degenerative changes in the spine. VISUALIZED UPPER ABDOMEN: Normal. OTHER FINDINGS: None. IMPRESSION: Hyperinflation suggestive for COPD and or emphysematous changes. Mild patchy increased markings at the left lung base. Bilateral hilar prominence. Progress Note: Bloodwork, urinalysis, EKG, CXR ordered and reviewed. IV Fluids given. On reassessment, patient is resting comfortably, showing no signs of distress and is stable for discharge. Patient is advised to follow up with his PMD within 2-5 days for further evaluation. Pt was informed of his FB on hand XR. Pt notes he had h/o fb in 2nd digit. 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 Pt was offered admission for the chest pain, healthcare network pricing consultant used to ensure understanding. Pt declined. No dizziness. Vitals stable. Case discussed with Dr Agudelo, agreed upon plan and treatment. Medical Decision Making Medical Decision Making: The patient declines admission, and wishes to leave the Emergency Department. This action is against my medical advice to the patient and the decision was made with informed refusal. The patient was told that admission is necessary and a full explanation of the rationale was given. The risks of leaving were explained to the patient and include, but are not limited to, worsening of known or currently unknown conditions, permanent disability and from undiagnosed or untreated conditions The patient has the capacity to make this informed decision and understands the clinical situation and my explanation of the risks of leaving. The patient voluntarily accepts these risks, and a signed AMA form documenting our conversation was obtained. The patient was given the op portunity to ask questions and reconsider. The patient was encouraged to return to the Emergency Department at any time for further care. Disposition - Disposition Disposition: HOME/ ROUTINE Disposition Time: 09:46 Condition: STABLE Additional Instructions: Vaya a woo mdico o la clnica en 2-5 walters sin falta, para mas evaluacin. [place] los medicamentos selina indicado. Volver a la cameron de emergencia en cualquier momento si los sntomas persisten o empeoran. Prescriptions: Albuterol HFA [Ventolin HFA 90 mcg/actuation (8 g)] 2 puff IH [id number] PRN #1 puff PRN Reason: Shortness Of Breath Amoxicillin/Clavulanate [Augmentin 875 MG-125 MG] 1 tab PO BID #14 tab Instructions: Wound Care (DC) Forms: (AMA) Informed Refusal, [facility] (Egyptian) Print Language: BHUTANESE - Clinical Impression Clinical Impression: Puncture wound, Dizziness - PA / ENVIRONMENTAL COMPLIANCE INSPECTOR / Resident Statement MD/DO has reviewed & agrees with the documentation as recorded. - Scribe Statement The provider has reviewed the documentation as recorded by the Scribe (Tanya Linder) All medical record entries made by the Scribe were at my direction and personally dictated by me. I have reviewed the chart and agree that the record accurately reflects my personal performance of the history, physical exam, medical decision making, and the department course for this patient. I have also personally directed, reviewed, and agree with the discharge instructions and disposition.
[2018-08-05 10:01] VITALS: BP 143/79; PULSE 60; RESP 18; TEMP 98.1
--- NOTE | 2018-08-05 10:01 | RAD ---
Date of service: 08/05/2018 PROCEDURE: CHEST RADIOGRAPH, 2 VIEW HISTORY: Shortness of breath COMPARISON: 08/15/2016 FINDINGS: LUNGS: Hyperinflation suggestive for COPD and or emphysematous changes. Mild patchy increased markings at the left lung base. Bilateral hilar prominence. PLEURA: No pneumothorax or pleural fluid seen. CARDIOVASCULAR: Normal. Calcification at the aortic knob. OSSEOUS STRUCTURES: Degenerative changes in the spine. VISUALIZED UPPER ABDOMEN: Normal. OTHER FINDINGS: None. IMPRESSION: Hyperinflation suggestive for COPD and or emphysematous changes. Mild patchy increased markings at the left lung base. Bilateral hilar prominence.
--- NOTE | 2018-08-05 10:41 | RAD ---
PROCEDURE: Left Hand Radiographs. HISTORY: trauma COMPARISON: None. FINDINGS: BONES: Normal. No fracture. JOINTS: Normal. No osteoarthritic changes. SOFT TISSUES: There is to 2 mm rounded hyperdensity closely approximating the volar 3rd digits distal phalangeal cortex definite cortical interruption here seen. There is less dense tinier hyperdensities in the soft tissues over the thumb/tuft. These findings may be material around the nail bed as a similar finding is also noted over the 3rd nail bed. OTHER FINDINGS: None. IMPRESSION: No gross cortical fracture. No dislocation. Hyperdensities most of which are likely relating to nail bed material-etiology unknown as above. The largest hyperdensity/3rd digit as above its etiology and chronicity is unknown. Clinical correlation regarding any prior trauma is needed. No gross cortical fracture gross cortical interruption seen.
--- NOTE | 2018-08-09 06:40 | CARD ---
APPROVED REPORT Date of service: 08/05/2018 EKG Measurement Heart [id number] <Conclusion> Normal sinus rhythm Normal ECG
== END 2018-08-05 10:01 | disposition home or self-care (01) ==
LOC: C.ER 06:55
DX: S61.432A Puncture wound without foreign body of left hand, initial encounter (principal); W26.8XXA Contact with other sharp object(s), not elsewhere classified, initial encounter; Y92.89 Other specified places as the place of occurrence of the external cause; Y99.0 Civilian activity done for income or pay; R42 Dizziness and giddiness
CPT/HCPCS: 71046; 73130; 80053; 81001; 82550; 82553; 84484; 85025; 93005; 96360; 99285; J7030

== ENCOUNTER 2018-08-15 00:24 | Inpatient (IN) | payer MEDICARE ==
[2018-08-15 00:24] VITALS: BMI 25.2
[2018-08-15] MEDS ORDERED: Sodium Chloride 0.9% 1,000 ML IV ONE ×3 (01:47→04:31)
[2018-08-15 01:48] VITALS: RESP 20
--- NOTE | 2018-08-15 01:51 | C.PDOC ---
History Of Present Illness 73 y/o male with hypothyroid, htn and bph comes to ed after 3 syncopal episodes around midnight with pressure like chest pain and lightheadedness starting after syncopal episodes. pt sts he ate little today, also took lisinopril around 3 pm and later in the evening, pt took 2 tabs viagra. - HPI Time Seen by Provider: 08/15/18 01:05 Chief Complaint (Nursing): Trauma History Per: Patient History/Exam Limitations: no limitations Onset/Duration Of Symptoms: Hrs Associated Symptoms: Other (light-headed) Recent travel outside of the [place]: No Past Medical History Reviewed: Historical Data, Nursing Documentation, Vital Signs Vital Signs: Last Vital Signs Temp 97.5 F L 08/15/18 00:34 Pulse 62 08/15/18 00:34 Resp 18 08/15/18 00:34 BP 98/61 L 08/15/18 00:34 Pulse Ox 98 08/15/18 00:34 - Medical History PMH: Benign Prostatic Hyperplasia, Colonic Polyps (REMOVED), Diverticulitis (diverticulosis), Gastritis, HTN, Kidney Stones, Chronic Kidney Disease Denies: Crohn's Disease, Gall Bladder Disease, Pancreatitis Surgical History: Appendectomy, Endoscopy - [facility] Procedures ENDOSC POLYPECTOMY OF LG INTEST (01/07/14) ESOPHAGOGASTRODUODENOSCOPY [EGD] W/CLOSED BIOPSY (01/07/14) RESECTION OF APPENDIX, PERCUTANEOUS ENDOSCOPIC APPROACH (05/29/16) RETROGRADE PYELOGRAM (12/21/14) Family History: States: Unknown Family Hx - Social History Hx Tobacco Use: Yes ("once in a while") Hx Alcohol Use: No Hx Substance Use: Yes - Immunization History Hx Tetanus Toxoid Vaccination: No (unk) Hx Influenza Vaccination: No Hx Pneumococcal Vaccination: No (unk) Review Of Systems Constitutional: Negative for: Fever Eyes: Negative for: Vision Change Cardiovascular: Positive for: Chest Pain Respiratory: Positive for: Cough (x 1 week), Shortness of Breath Gastrointestinal: Negative for: Nausea, Vomiting Neurological: Positive for: Other (light-headed) Physical Exam - Physical Exam Appears: Non-toxic, No Acute Distress, Other (Elderly) Skin: Warm, Dry, No Diaphoretic, Other (hematoma to left, upper forehead. Abrasion to the left lower lip ) Head: No Atraumatic, Normacephalic, Swelling (left forehead) Eye(s): bilateral: PERRL, EOMI Ear(s): Bilateral: Normal (no hemotypanum) Oral Mucosa: Dry Teeth: Other (poor dentition, several missing teeth) Neck: No Midline Cervical Tenderness, Supple Chest: Symmetrical, No Deformity, No Tenderness Cardiovascular: Rhythm Regular, No Murmur Respiratory: No Rales, No Rhonchi, No Wheezing, Other (CTA b/l) Gastrointestinal/Abdominal: Bowel Sounds, Soft, No Tenderness, Other (old wellhealed horizontal surgical scar) Back: No CVA Tenderness Extremity: No Calf Tenderness, No Swelling Neurological/Psych: Oriented x3, Normal Speech, Normal Cognition ED Course And Treatment - Laboratory Results Result Diagrams: 08/15/18 02:08 08/15/18 02:08 ECG Interpretation: Normal Interpretation Of ECG: nsr at [address]-t changes O2 Sat by Pulse Oximetry: 98 (RA) Pulse Ox Interpretation: Normal - CT Scan/US Head CT Other Rad Studies (CT/US): Read By Radiologist, Radiology Report Reviewed CT/US Interpretation: IMPRESSION: No CT evidence of acute traumatic brain pathology. Progress Note: Ordered EKGs, labs, and head CT Medical Decision Making Medical Decision Makin pt not given aspirin due to allergy to asa, gets rash. pmd Elliott Castillo [id number] ot still hypotensive after one liter ns. hea ct neg for acute abnormality. cxr neg. discussed with Dr Nicola Bejarano and will admit pt to telemetry. pt agrees to admission. Disposition Discussed With .: Nicola Bejarano Doctor Will See Patient In The: Hospital - Disposition Referrals: Jonathan Gallagher MD [Staff Provider] - Disposition: HOSPITALIZED Disposition Time: 03:34 Condition: STABLE Forms: [facility] (Faroese) - Clinical Impression Clinical Impression: Syncope, Chest pain, Hypotension - PA / MAPPING PILOT / Resident Statement MD/DO has reviewed & agrees with the documentation as recorded. - Scribe Statement The provider has reviewed the documentation as recorded by the Scribe Vee Kent All medical record entries made by the Scribe were at my direction and personally dictated by me. I have reviewed the chart and agree that the record accurately reflects my personal performance of the history, physical exam, medical decision making, and the department course for this patient. I have also personally directed, reviewed, and agree with the discharge instructions and disposition.
[2018-08-15] MEDS ORDERED: Sodium Chloride 0.9% 1,000 ML ONE (02:07)
[2018-08-15 02:12] LABS: BASO % 0.2 % (0.0-2.0); EOS # 0.2 K/uL (0.0-0.7); EOS % 1.9 % (0.0-4.0); LYMPH % 29.9 % (20.0-40.0); MEAN CELL VOLUME 94.3 fL (80.0-94.0); MEAN CORPUSCULAR HEMOGLOBIN 32.4 pg (27.0-31.0); MEAN CORPUSCULAR HGB CONC 34.3 g/dL (33.0-37.0); MONO # 0.6 K/uL (0.0-0.8); MONO % 5.8 % (0.0-10.0); NEUT # 6.2 K/uL (1.8-7.0); NEUT % 62.2 % (50.0-75.0); NRBC % 0.1 % (0.0-2.0); RBC 3.7 Mil/uL (4.40-5.90); RED CELL DISTRIBUTION WIDTH 13.3 % (11.5-14.5)
[2018-08-15 02:48] LABS: ALB/GLOB RATIO 1.5 (1.0-2.1); ALBUMIN 3.7 g/dL (3.5-5.0); ALT/SGPT 21 U/L (21-72); AST/SGOT 14 U/L (17-59); BLOOD UREA NITROGEN 32 mg/dL (9-20); CALCIUM 9.2 mg/dl (8.6-10.4); GFR NON-AFRICAN AMERICAN 50
--- NOTE | 2018-08-15 04:20 | CP.PCM.HP ---
<Martínez Solorzano - Last Filed: 08/15/18 04:55> History of Present Illness - History of Present Illness History of Present Illness: CC: Passing out 73 Y w/ PMHx of hypertension, BPH, ?osteoporosis, herniated disc, diverticulosis, presents to ED following 3 syncopal episodes. Patient states he woke up middle of the night to pass a bowel movement and while walking back to bedroom, he had a syncopal episode. Patient states he did no regain consciousness for about 15 minutes initially. Patients helped him up and on the way back to the bedroom, patient passed out 2 more times, for 5 minutes each. Patient states earlier in the day, he took his HTN medication around 4pm and then proceeded to take cialis 20mg X2 prior to sleeping. Patient states he normally takes cialis roughly 1 per day. Patient denies palpitations prior to syncopal episodes; however, he did have chest pain prior to episodes along with SOB. Patient admits to head pain. Patient denies vision changes, motor/sensory deficits, urinary & bowel incontinence, chest pain/SOB at time of examination. Patient admits to head pain as a result of the fall ROS: Patient denies vision changes, motor/sensory deficits, urinary & bowel incontinence, changes in bowel (denies blood/discoloration) chest pain/SOB at time of examination. Patient admits to head pain as a result of the fall PMD: Elliott Castillo PMHx: hypertension, BPH, ?osteoporosis, herniated disc, diverticulosis Meds: levothyroxine 125mcg, Famotidine 20 mg BID, Albuterol Q6 PRN, Tamsulosin 0.4 mg PO daily, Lisinopril 40 mg PO daily, Calcium/VitD3 PSHx: abdominal hernia repair, appendectomy Allergies: Aspirin - rash Social: Smokes mirjuana, denies tobacco, ETOH, other illicit drug use Present on Admission - Present on Admission Any Indicators Present on Admission: No Review of Systems - Constitutional Constitutional: Headache. absent: Chills, Frequent Falls - EENT Eyes: absent: Blurred Vision, Diplopia Nose/Mouth/Throat: absent: Nasal Trauma, Nose Pain, Dysphagia - Cardiovascular Cardiovascular: absent: Chest Pain, Dyspnea, Leg Edema, Palpitations - Respiratory Respiratory: absent: Dyspnea - Gastrointestinal Gastrointestinal: absent: Abdominal Pain - Genitourinary Genitourinary: absent: Change in Urinary Stream - Musculoskeletal Musculoskeletal: absent: Arthralgias, Joint Swelling - Integumentary Integumentary: absent: Pruritus, Rash - Neurological Neurological: Headaches, Syncope. absent: Focal Weakness, Loss of Vision - Psychiatric Psychiatric: absent: Behavioral Changes Past Patient History - Infectious Disease Hx of Infectious Diseases: None - Past Medical History & Family History Past Medical History?: Yes - Past Social History Smoking Status: Former Smoker - CARDIAC Hx Hypertension: Yes - PULMONARY Hx Respiratory Disorders: No - NEUROLOGICAL Hx Neurological Disorder: No - HEENT Hx HEENT Problems: Yes (USES GLASSES FOR DISTANCE AND READING) - RENAL Hx Chronic Kidney Disease: Yes Hx Kidney Stones: Yes - ENDOCRINE/METABOLIC Hx Endocrine Disorders: No - HEMATOLOGICAL/ONCOLOGICAL Hx Blood Disorders: No Hx Cirrhosis: No Hx Hepatitis A: No Hx Hepatitis B: No Hx Hepatitis C: No - INTEGUMENTARY Hx Dermatological Problems: No - MUSCULOSKELETAL/RHEUMATOLOGICAL Hx Musculoskeletal Disorders: Yes Hx Back Pain: Yes Hx Falls: No Hx Herniated Disk: Yes (lumbar) - GASTROINTESTINAL Hx Crohn's Disease: No Hx Diverticulitis: Yes (diverticulosis) Hx Gall Bladder Disease: No Hx Gastritis: Yes Hx Pancreatitis: No - GENITOURINARY/GYNECOLOGICAL Hx Genitourinary Disorders: Yes Hx Hematuria: Yes Hx Prostate Problems: Yes - PSYCHIATRIC Hx Substance Use: Yes - SURGICAL HISTORY Hx Appendectomy: Yes - ANESTHESIA Hx Anesthesia: Yes Hx Anesthesia Reactions: No Hx Malignant Hyperthermia: No Meds Allergies/Adverse Reactions: Allergies Allergy/AdvReac Type Severity Reaction Status Date / Time aspirin Allergy RASH Verified 08/15/18 00:31 Physical Exam - Constitutional Appears: Non-toxic, No Acute Distress - Head Exam Additional comments: minor laceration on lips 2/2 to fall small area (approx 1cm in diameter) of contusion on left side of face - Eye Exam Eye Exam: EOMI, Normal appearance Pupil Exam: NORMAL ACCOMODATION - ENT Exam ENT Exam: Mucous Membranes Moist - Respiratory Exam Respiratory Exam: Clear to Auscultation Bilateral, Wheezes, NORMAL BREATHING PATTERN. absent: Rales, Rhonchi - Cardiovascular Exam Cardiovascular Exam: +S1, +S2. absent: Irregular Rhythm - GI/Abdominal Exam GI & Abdominal Exam: Normal Bowel Sounds, Soft Additional comments: midline scar 2/2 hernia repair - Extremities Exam Extremities exam: Positive for: normal inspection, pedal pulses present. Negative for: calf tenderness, pedal edema - Back Exam Back exam: absent: CVA tenderness (R) - Neurological Exam Neurological exam: Alert, CN II-XII Intact, Oriented x3 - Psychiatric Exam Psychiatric exam: Normal Affect, Normal Mood - Skin Skin Exam: Dry, Normal Color, Warm Results - Vital Signs Recent Vital Signs: Last Vital Signs Temp 97.5 F L 08/15/18 00:34 Pulse 71 08/15/18 01:47 Resp 20 08/15/18 01:47 BP 100/54 L 08/15/18 01:47 Pulse Ox 98 08/15/18 03:37 - Labs Result Diagrams: 08/15/18 02:08 08/15/18 02:08 Labs: Laboratory Results - last 24 hr 08/15/18 08/15/18 08/15/18 01:54 02:08 02:08 WBC 10.0 RBC 3.70 L Hgb 12.0 Hct 34.9 L MCV 94.3 H MCH 32.4 H MCHC 34.3 RDW 13.3 Plt Count 220 MPV 8.0 Neut % (Auto) 62.2 Lymph % (Auto) 29.9 [place]cd[place] % (Auto) 5.8 Eos % (Auto) 1.9 Baso % (Auto) 0.2 Neut # (Auto) 6.2 Lymph # (Auto) 3.0 [place] # (Auto) 0.6 Eos # (Auto) 0.2 Baso # (Auto) 0.0 Sodium 143 Potassium 4.0 Chloride 107 Carbon Dioxide 24 Anion Gap 16 BUN 32 H Creatinine 1.4 Est GFR ( Amer) > 60 Est GFR (Non-Af Amer) 50 POC Glucose (mg/dL) 118 H Random Glucose 122 H Calcium 9.2 Total Bilirubin 0.3 AST 14 L D ALT 21 D Alkaline Phosphatase 65 Troponin I < 0.0120 Total Protein 6.2 L Albumin 3.7 Globulin 2.4 Albumin/Globulin Ratio 1.5 Assessment & Plan - Assessment and Plan (Free Text) Assessment: 73 Y w/ PMHx of hypertension, BPH, ?osteoporosis, herniated disc, diverticulosis, presents to ED following 3 syncopal episodes following taking erectile dysfunction medication: Syncope, likely 2/2 to Cialis use Chest Pain R/o ACS - initial BP upper 90s/5=60s, Repeat at examination 110s/50s; remaining vital wnl - ZAKIYA X1 negative, EKG NSR, CXR no acute processes identified, will check for official read - Repeat EKG & ZAKIYA @ 6AM & 12PM - F/u TSH - NS @ 100ml/ hr - monitor BP Head pain - likely 2/2 to fall - tylenol 650 mg PO PRN for pain - CT head - no acute bleed, no midline shift observed, some brain atrophy, but will wait for official read Hypothyrodism - continue w/ home medication: levothyroxine 125mcg daily - F/u TSH Hypertension chronic - continue w/ home medication: lisinopril 40 mg daily -hold if SBP < 120 ?Asthma - continue w/ home medication: albuterol PRN BPH: chronic - Continue w/ home medication: tamsulosin 0.4mg daily ?Osteoporosis - continue w/ home medication: Vit D/ Calcium supplement - F/u w/ PMD Prophylaxsis - DVT: VTE contraindicated 2/2 to recent head trauma - GI prophylaxis: c/w home medication: pepcid 20mg BID <Nicola Bejarano A - Last Filed: 08/15/18 06:29> Results - Vital Signs Recent Vital Signs: Last Vital Signs Temp 97.4 F L 08/15/18 04:50 Pulse 68 08/15/18 04:54 Resp 20 08/15/18 04:50 BP 109/63 08/15/18 04:50 Pulse Ox 98 08/15/18 04:50 - Labs Result Diagrams: 08/15/18 02:08 08/15/18 02:08 Labs: Laboratory Results - last 24 hr 08/15/18 08/15/18 08/15/18 01:54 02:08 02:08 WBC 10.0 RBC 3.70 L Hgb 12.0 Hct 34.9 L MCV 94.3 H MCH 32.4 H MCHC 34.3 RDW 13.3 Plt Count 220 MPV 8.0 Neut % (Auto) 62.2 Lymph % (Auto) 29.9 [place]cdonough % (Auto) 5.8 Eos % (Auto) 1.9 Baso % (Auto) 0.2 Neut # (Auto) 6.2 Lymph # (Auto) 3.0 [place]cd[place] # (Auto) 0.6 Eos # (Auto) 0.2 Baso # (Auto) 0.0 Sodium 143 Potassium 4.0 Chloride 107 Carbon Dioxide 24 Anion Gap 16 BUN 32 H Creatinine 1.4 Est GFR ( Amer) > 60 Est GFR (Non-Af Amer) 50 POC Glucose (mg/dL) 118 H Random Glucose 122 H Calcium 9.2 Total Bilirubin 0.3 AST 14 L D ALT 21 D Alkaline Phosphatase 65 Troponin I < 0.0120 Total Protein 6.2 L Albumin 3.7 Globulin 2.4 Albumin/Globulin Ratio 1.5 Assessment & Plan - Date & Time Date: 08/15/18 (I have seen and examined the patient. I agree with the findings and plan of care as documented by Dr. Solorzano. Patient with syncope, chest pain, and hypotension. Problems related to Cialis use. Follow up official CT head results. ROMIx3 with EKG. Observe on tele. IVF. Monitor for acute changes.) Time: 06:27 Attending/Attestation - Attestation I have personally seen and examined this patient.: Yes I have fully participated in the care of the patient.: Yes I have reviewed all pertinent clinical information: Yes
[2018-08-15] MEDS ORDERED: Albuterol HFA 90 mcg/actuation (8 g) IH PRN (04:34)
[2018-08-15] MEDS ORDERED: Levothyroxine 125 MCG TAB PO SCH (06:30)
--- NOTE | 2018-08-15 08:30 | CT ---
Date of service: 08/15/2018 PROCEDURE: CT HEAD WITHOUT CONTRAST. HISTORY: syncope hit left side forehead COMPARISON: None available. TECHNIQUE: Axial computed tomography images were obtained through the head/brain without intravenous contrast. Radiation dose: Total exam DLP = 1039.3 mGy-cm. This CT exam was performed using one or more of the following dose reduction techniques: Automated exposure control, adjustment of the mA and/or kV according to patient size, and/or use of iterative reconstruction technique. FINDINGS: HEMORRHAGE: No intracranial hemorrhage. BRAIN: Diffuse atrophy with prominence of the ventricles and sulci noted. No mass effect or edema. Punctate nonspecific parenchymal calcification. Intracranial atherosclerosis. Scattered periventricular and subcortical white matter hypodensities, which are nonspecific, but often seen with chronic microvascular ischemic disease. Please note that MRI with diffusion imaging is more sensitive in the detection of acute ischemic event. VENTRICLES: No hydrocephalus. CALVARIUM: Unremarkable. PARANASAL SINUSES: Mucosal thickening of the ethmoid air cells. MASTOID AIR CELLS: Unremarkable as visualized. No inflammatory changes. OTHER FINDINGS: None. IMPRESSION: Generalized atrophy. Nonspecific white matter changes. Preliminary impression was provided by [facility].
--- NOTE | 2018-08-15 08:33 | RAD ---
Date of service: 08/15/2018 PROCEDURE: CHEST RADIOGRAPH, 1 VIEW HISTORY: Chest pain COMPARISON: 08/05/2018 FINDINGS: LUNGS: The lungs are well inflated and clear. PLEURA: No pneumothorax or pleural fluid seen. CARDIOVASCULAR: The heart is normal in size. Macro arge OSSEOUS STRUCTURES: No significant abnormalities. VISUALIZED UPPER ABDOMEN: Normal. OTHER FINDINGS: None. IMPRESSION: No active pulmonary disease.
[2018-08-15 09:17] LABS: CK-MB 1.04 ng/mL (0.0-3.38)
--- NOTE | 2018-08-15 09:24 | CP.PCM.PN ---
Subjective - Date & Time of Evaluation Date of Evaluation: 08/15/18 Time of Evaluation: 09:24 - Subjective Subjective: Progress Note for Hospitalist service Objective - Vital Signs/Intake and Output Vital Signs (last 24 hours): Temp Pulse Resp BP Pulse Ox 98.1 F 55 L 20 111/66 100 08/15/18 08:39 08/15/18 08:39 08/15/18 08:39 08/15/18 08:39 08/15/18 08:39 Intake and Output: 08/15/18 08/15/18 06:59 18:59 Intake Total 280 Output Total 200 Balance 80 - Medications Medications: Current Medications Acetaminophen (Tylenol 325mg Tab) 650 mg PO Q6 PRN PRN Reason: Pain, Mild (1-3) Albuterol (Ventolin Hfa 90 Mcg/Actuation (8 G)) 2 puff IH RQ6 PRN PRN Reason: Shortness of Breath Calcium/Vitamin D (Oscal-D 250 Mg-125 Units Tab) 2 tab PO BID [facility] Famotidine (Pepcid) 20 mg PO BID [facility] Sodium Chloride (Sodium Chloride 0.9%) 1,000 mls @ 100 mls/hr IV .Q10H ONE Stop: 08/15/18 13:26 Last Admin: 08/15/18 05:10 Dose: 100 mls/hr Influenza Virus Vaccine (Fluzone Quad [id number]) 60 mcg IM .ONCE ONE Stop: 08/17/18 10:01 Levothyroxine Sodium (Synthroid) 125 mcg PO DAILY@0630 JASKARAN Last Admin: 08/15/18 07:29 Dose: 125 mcg Lisinopril (Zestril) 40 mg PO DAILY [facility] Pneumococcal Polyvalent Vaccine (Pneumovax 23 Vaccine) 0.5 ml IM .ONCE ONE Stop: 08/17/18 10:01 Tamsulosin HCl (Flomax) 0.4 mg PO DAILY [facility] - Labs Labs: 08/15/18 02:08 08/15/18 02:08
[2018-08-15] MEDS ORDERED: Enoxaparin 40 mg Syringe SC SCH (10:00)
[2018-08-15] MEDS ORDERED: Calcium-Vit D 250 mg-125 Units Tab UD PO SCH (10:00)
[2018-08-15 14:17] LABS: CK-MB 1.24 ng/mL (0.0-3.38)
[2018-08-15 16:33] VITALS: BP 126/64; PULSE 50; TEMP 98.2; O2SAT 98
--- NOTE | 2018-08-15 17:02 | CP.PCM.DIS ---
Provider - Provider Date of Admission: 08/15/18 03:28 Attending physician: Nicola Bejarano MD Primary care physician: Non [facility] Provider Time Spent in preparation of Discharge (in minutes): 35 Hospital Course - Lab Results Lab Results: Most Recent Lab Values WBC 10.0 K/uL (4.8-10.8) 08/15/18 02:08 RBC 3.70 Mil/uL (4.40-5.90) L 08/15/18 02:08 Hgb 12.0 g/dL (12.0-18.0) 08/15/18 02:08 Hct 34.9 % (35.0-51.0) L 08/15/18 02:08 MCV 94.3 fL (80.0-94.0) H 08/15/18 02:08 MCH 32.4 pg (27.0-31.0) H 08/15/18 02:08 MCHC 34.3 g/dL (33.0-37.0) 08/15/18 02:08 RDW 13.3 % (11.5-14.5) 08/15/18 02:08 Plt Count 220 K/uL (130-400) 08/15/18 02:08 MPV 8.0 fL (7.2-11.7) 08/15/18 02:08 Neut % (Auto) 62.2 % (50.0-75.0) 08/15/18 02:08 Lymph % (Auto) 29.9 % (20.0-40.0) 08/15/18 02:08 [place] % (Auto) 5.8 % (0.0-10.0) 08/15/18 02:08 Eos % (Auto) 1.9 % (0.0-4.0) 08/15/18 02:08 Baso % (Auto) 0.2 % (0.0-2.0) 08/15/18 02:08 Neut # (Auto) 6.2 K/uL (1.8-7.0) 08/15/18 02:08 Lymph # (Auto) 3.0 K/uL (1.0-4.3) 08/15/18 02:08 [place] # (Auto) 0.6 K/uL (0.0-0.8) 08/15/18 02:08 Eos # (Auto) 0.2 K/uL (0.0-0.7) 08/15/18 02:08 Baso # (Auto) 0.0 K/uL (0.0-0.2) 08/15/18 02:08 Sodium 143 mmol/L (132-148) 08/15/18 02:08 Potassium 4.0 mmol/L (3.6-5.2) 08/15/18 02:08 Chloride 107 mmol/L (98-107) 08/15/18 02:08 Carbon Dioxide 24 mmol/L (22-30) 08/15/18 02:08 Anion Gap 16 (10-20) 08/15/18 02:08 BUN 32 mg/dL (9-20) H 08/15/18 02:08 Creatinine 1.4 mg/dL (0.8-1.5) 08/15/18 02:08 Est GFR ( Amer) > 60 08/15/18 02:08 Est GFR (Non-Af Amer) 50 08/15/18 02:08 POC Glucose (mg/dL) 118 mg/dL (65-110) H 08/15/18 01:54 Random Glucose 122 mg/dL (75-110) H 08/15/18 02:08 Calcium 9.2 mg/dl (8.6-10.4) 08/15/18 02:08 Total Bilirubin 0.3 mg/dL (0.2-1.3) 08/15/18 02:08 AST 14 U/L (17-59) L D 08/15/18 02:08 ALT 21 U/L (21-72) D 08/15/18 02:08 Alkaline Phosphatase 65 U/L (38-126) 08/15/18 02:08 Total Creatine Kinase 64 U/L (55-170) 08/15/18 13:47 CK-MB (Mass) 1.24 ng/mL (0.0-3.38) 08/15/18 13:47 Troponin I < 0.0120 ng/mL (0.00-0.120) 08/15/18 13:47 Total Protein 6.2 g/dL (6.3-8.3) L 08/15/18 02:08 Albumin 3.7 g/dL (3.5-5.0) 08/15/18 02:08 Globulin 2.4 gm/dL (2.2-3.9) 08/15/18 02:08 Albumin/Globulin Ratio 1.5 (1.0-2.1) 08/15/18 02:08 TSH 3rd Generation 0.03 mIU/L (0.46-4.68) L 08/15/18 08:13 - Hospital Course Hospital Course: On admission: 73 Y w/ PMHx of hypertension, BPH, osteoporosis, herniated disc, diverticulosis, presents to ED following 3 syncopal episodes. Patient states he woke up middle of the night to pass a bowel movement and while walking back to bedroom, he had a syncopal episode. Patient states he did no regain consciousness for about 15 minutes initially. Patients helped him up and on the way back to the bedroom, patient passed out 2 more times, for 5 minutes each. Patient states earlier in the day, he took his HTN medication around 4pm and then proceeded to take cialis 20mg X2 prior to sleeping. Patient states he normally takes cialis roughly 1 per day. Patient denies palpitations prior to syncopal episodes; however, he did have chest pain prior to episodes along with SOB. Patient admits to head pain. Patient denies vision changes, motor/sensory deficits, urinary & bowel incontinence, chest pain/SOB at time of examination. Patient admits to head pain as a result of the fall. Hospital course: Patient was admitted for multiple episodes of syncope, fall and hypotension. Patient was found to have an initial blood pressure of 98/61, however blood pressure improved with IV fluids. Given multiple episodes of syncope and fall, CT head was ordered which was negative for acute changes. Serial troponins and EKGs were negative for acute coronary syndrome. Case discussed with patient's pr ary physician Dr. Elliott Castillo who stated that patient had recent Echo and carotid doppler and did not warrant further testing at this time, requested that patient follow up in his office. Patient was not altered, he remains alert and oriented during his admission. Upon discharge, patient was asymptomatic with no dizziness, no further episodes of syncope or falls, no chest pain or shortness of breath. Patient was able to walk without experiencing any near syncopal episodes or dizziness. This is a brief summary of the hospital course. For further details, please refer to medical records. Imaging: CT head: generalized atrophy. white matter changes. CXR: no active pulmonary disease Discharge summary: Patient is medically stable for discharge. Patient's dizziness has resolved, was able to walk without complaints of dizziness or near syncopal episode. Blood pressure has improved since admission. Patient is instructed not to take any more Sildenafil or Viagra as it may lower his blood pressure until he sees his PMD Dr. Castillo. Patient advised to drink plenty of water and stay hydrated. As per Dr. Castillo, patient has had recent ECHO and carotid doppler and not warranted at this time. Troponins x3 were negative. Patient advised to follow up with PMD Dr. Castillo within 1 week. Patient instructed to return to the ED if patient has recurrent episodes of syncope or falls or if patient experiences altered mental status, changes in vision, changes in hearing or worsening of dizziness. Discharge Exam - Head Exam Head Exam: ATRAUMATIC, NORMOCEPHALIC - Eye Exam Eye Exam: EOMI, PERRL - ENT Exam ENT Exam: Mucous Membranes Moist - Neck Exam Neck exam: Full Rom Additional comments: no midline tenderness - Respiratory Exam Respiratory Exam: Clear to PA & Lateral. absent: Rales, Rhonchi, Wheezes, Respiratory Distress, Stridor - Cardiovascular Exam Cardiovascular Exam: REGULAR RHYTHM, +S1, +S2. absent: Gallop, Rubs, Systolic Murmur - GI/Abdominal Exam GI & Abdominal Exam: Normal Bowel Sounds, Soft. absent: Distended, Firm, Guarding, Hernia, Tenderness - Extremities Exam Additional comments: no calf tenderness, no pedal edema. good distal pulses. - Back Exam Back exam: absent: CVA tenderness (L), CVA tenderness (R) - Neurological Exam Neurological exam: Alert, CN II-XII Intact, Oriented x3 - Psychiatric Exam Psychiatric exam: Normal Affect, Normal Mood - Skin Skin Exam: Dry, Intact, Warm Discharge Plan - Follow Up Plan Condition: STABLE Disposition: HOME/ ROUTINE Instructions: Heart Healthy Diet, Chest Pain (DC), Syncope (Fainting) (DC), Low Blood Pressure (DC) Additional Instructions: Patient is medically stable for discharge. Patient's dizziness has resolved, was able to walk without complaints of dizziness or near syncopal episode. Blood pressure has improved since admission. Patient is instructed not to take any more Sildenafil or Viagra as it may lower his blood pressure until he sees his PMD Dr. Castillo. Patient advised to drink plenty of water and stay hydrated. As per Dr. Castillo, patient has had recent ECHO and carotid doppler and not warranted at this time. Troponins x3 were negative. Patient advised to follow up with PMD Dr. Castillo within 1 week. Patient instructed to return to the ED if patient has recurrent episodes of syncope or falls or if patient experiences altered mental status, changes in vision, changes in hearing or worsening of dizziness. Referrals: Jonathan Gallagher MD [Staff Provider] -
[2018-08-15] MEDS ORDERED: Influenza Vaccine 60 MCG/0.5 ML SYR (3 yr & up) IM ONE (17:56)
[2018-08-15] MEDS ORDERED: Pneumococcal 23-Valent Vaccine IM ONE (17:57)
[2018-08-17] MEDS ORDERED: Pneumococcal 23-Valent Vaccine IM ONE (10:00)
[2018-08-17] MEDS ORDERED: Influenza Vaccine 60 MCG/0.5 ML SYR (3 yr & up) IM ONE (10:00)
--- NOTE | 2018-08-18 17:34 | CARD ---
APPROVED REPORT Date of service: 08/15/2018 EKG Measurement Heart [id number] ID [id number] <Conclusion> Sinus bradycardia Otherwise normal ECG
--- NOTE | 2018-08-18 17:34 | CARD ---
APPROVED REPORT Date of service: 08/15/2018 EKG Measurement Heart [id number] ID [id number] <Conclusion> Sinus bradycardia Otherwise normal ECG
--- NOTE | 2018-08-18 17:35 | CARD ---
APPROVED REPORT Date of service: 08/15/2018 EKG Measurement Heart [id number] TN 150P42 [id number] <Conclusion> Normal sinus rhythm Normal ECG
== END 2018-08-15 19:00 | disposition home or self-care (01) | DRG 312 ==
LOC: SUPCPDRO 00:24 → C.ER 00:24 → C.6T 03:28
PROVIDERS: ADMIT Family Medicine; ATTEND Family Medicine
DX: R55 Syncope and collapse (principal); T46.7X5A Adverse effect of peripheral vasodilators, initial encounter; R07.9 Chest pain, unspecified; I95.9 Hypotension, unspecified; E03.9 Hypothyroidism, unspecified; R42 Dizziness and giddiness; N18.9 Chronic kidney disease, unspecified; I12.9 Hypertensive chronic kidney disease with stage 1 through stage 4 chronic kidney disease, or unspecified chronic kidney disease; N40.0 Benign prostatic hyperplasia without lower urinary tract symptoms; M81.0 Age-related osteoporosis without current pathological fracture; J45.909 Unspecified asthma, uncomplicated; Z79.899 Other long term (current) drug therapy; Z87.442 Personal history of urinary calculi; Z86.010 Personal history of colon polyps; Z87.891 Personal history of nicotine dependence; Z88.6 Allergy status to analgesic agent; Z90.49 Acquired absence of other specified parts of digestive tract